=== PATIENT | female | born 1945 | race Caucasian/White ===

== ENCOUNTER 2017-11-11 07:44 | Day surgery (SDC) | payer OTHER ==
[~2017-11-11 07:44] MED LIST: AMBIEN10 MG; ATORVASTATIN CA10 MG; COZAAR25 MG; INTESTINEX680 MG PO; MONTELUKAST SODI4 MG; OMEPRAZOLE20 MG PO; PERCOCET 5/3251 TAB PO; PROVENTIL0.5 ML/2.5; SINGULAIR4 MG
== END 2017-11-11 16:57 | disposition home or self-care (01) ==
LOC: AMB-ENDOS 07:44
DX: D12.0 Benign neoplasm of cecum (principal)

== ENCOUNTER → 2020-01-11 06:00 | Outpatient (CLI) | payer OTHER | END | disposition home or self-care (01) | LOC: LAB 06:00 → ADM 08:30 → EDSTATUS 01-15 08:30 → ADM 01-15 08:30 | PROVIDERS: ATTEND Surgery | DX: D12.0 Benign neoplasm of cecum (principal); R59.0 Localized enlarged lymph nodes; Z03.818 Encounter for observation for suspected exposure to other biological agents ruled out ==

== ENCOUNTER 2021-03-24 08:25 | Day surgery (SDC) | payer OTHER | END 2021-03-24 11:50 | disposition home or self-care (01) | LOC: AMB-ENDOS 08:25 | PROVIDERS: ATTEND Surgery | DX: K62.89 Other specified diseases of anus and rectum (principal); K64.8 Other hemorrhoids; Z20.822 Contact with and (suspected) exposure to COVID-19 ==